=== PATIENT | male | born 1980 | race Caucasian/White ===

== ENCOUNTER 2022-04-24 09:44 | Emergency (ER) | payer OTHER, SELFPAY ==
--- NOTE | ~2022-04-24 | CT_ITS ---
EXAMINATION: CT BRAIN W/O DATE: 04/24/2022 09:53 INDICATION: CVA. TECHNIQUE: Computed tomography (CT) of the head was performed without intravenous contrast. The dose- length product was 605.33 mGy-cm. Automated exposure control and iterative reconstruction technique were employed. COMPARISON: No prior studies for comparison. FINDINGS: Normal brain parenchymal volume for age. Normal ceballos-white differentiation. No acute intrac ranial hemorrhage, infarction, mass or mass effect. No ventriculomegaly or midline shift. Midline sagittal images demonstrate a normal corpus callosum, c raniovertebral junction and sella turcica. Basilar cisterns are patent. There is mild mucosal thickening of the ethmoid sinuses. IMPRESSION: 1. No acute intracranial abnormality. As per stroke protocol, I called these results to emergency room, discussed with Johann Green at 04/24/2022 09:57 CDT. Reviewed, dictated and finalized at location B. IMPRESSION: 1. No acute intracranial abnormality. As per stroke protocol, I called these results to emergency room, discussed wit h Dr. Gladis Kyle MD at 04/24/2022 09:57 CDT.
--- NOTE | ~2022-04-24 | XR_ITS ---
EXAMINATION: XR chest 1V portable 04/24/2022 10:24 INDICATION: CVA. Right-sided weakness. PROCEDURE: AP portable chest COMPARISON: No prior studies for comparison. FINDINGS: The lungs are clear. The cardiomediastinal silhouette is within normal limits. There are no pleural effusions. There is no pneumothorax suspected. IMPRESSION: 1: NO ACUTE CARDIOPULMONARY DISEASE. Reviewed, dictated and finalized at location B.
--- NOTE | 2022-04-24 09:47 | PC.NURSE ---
Sudden RIGHT sided facial numbness/droop, last known normal 0800 this AM.
--- NOTE | 2022-04-24 09:48 | ECG_ITS ---
Measurements Intervals [place] Rate: 103 P: 52 RI: 172 QRS: -11 QRSD: 94 T: 51 QT: 328 QTc: 429 Interpretive Statements SINUS TACHYCARDIA POSSIBLE LEFT ATRIAL ENLARGEMENT [-0.1mV P-WAVE IN V1/V2] INCOMPLETE RIGHT BUNDLE BRANCH BLOCK POSSIBLE LEFT VENTRICULAR HYPERTROPHY [VOLTAGE CRITERIA PLUS LAE OR QRS WIDENING] NO PREVIOUS ECG AVAILABLE FOR COMPARISON Electronically Signed On 04-24-2022 14:29:51 CDT by Jonathan Hough M.D.
[2022-04-24 09:59] VITALS: BP 154/103; PULSE 108; RESP 24; TEMP 36.4; O2SAT 97
[2022-04-24 09:59] LABS: Glucose Point of Care 120 mg/dl (65-105)
[2022-04-24 10:05] LABS: Basophils Percent Auto 0.3 % (0.2-1.2); Eosinophils Absolute Auto 0.1 K/mm3 (0-0.3); Eosinophils Percent Auto 1.6 % (0-4.4); Hematocrit 54.1 % (42.0-52.0); Hemoglobin 18.6 g/dL (14.0-18.0); Immature Granulocyte Absolute 0.03 K/mm3 (0.00-0.031); Immature Granulocyte Percent A 0.4 % (0-0.5); Lymphocytes Absolute Auto 1.64 K/mm3 (0.9-3.2); Lymphocytes Percent Auto 21.5 % (18.3-44.2); Mean Corpuscular HGB Conc 34.4 g/dl (32-36); Mean Corpuscular Hemoglobin 32.3 pg (26-34); Mean Corpuscular Volume 93.9 fl (80-100); Mean Platelet Volume 9.6 fl (7.4-10.4); Monocytes Absolute Auto 0.8 K/mm3 (0.1-0.6); Monocytes Percent Auto 10.6 % (2.6-8.5); Neutrophils Percent Auto 65.6 % (45.5-73.1); Platelet Count Result 268 k/mm3 (150-375); Red Blood Count 5.76 M/mm3 (4.6-6.20); Red Cell Distribution Width 12.4 % (11.5-14.5); White Blood Count 7.6 K/mm3 (4.5-10.0)
[2022-04-24 10:12] LABS: INR 1.1; Prothrombin Time 13.3 Seconds (11.1-14.7)
[2022-04-24 10:13] LABS: Partial Thromboplastin Time 28.7 SECONDS (22.3-36.8)
--- NOTE | 2022-04-24 10:14 | PC.NURSE ---
DUE TO PT MOBIOUS SYNDROME THE NIH WILL BE SKEWED. PT FACE IS PARALYZED AND HAS NO FEELING ON LEFT SIDE AT BASELINE. PT UNABLE TO FULL CLOSE EYES AND MAKE OTHER FACIAL EXPERESSIONS.
[2022-04-24 10:16] VITALS: BP 154/103; PULSE 100; PULSE 106; RESP 16; O2SAT 97
[2022-04-24 10:16] LABS: Alanine Aminotransferase 55 U/L (6-50); Albumin Level 4.7 g/dL (3.5-5.1); Alkaline Phosphatase 128 U/L (38-126); Anion Gap 16 mmol/L (8-16); Aspartate Amino Transferase 89 U/L (17-59); Bilirubin,Total 0.8 mg/dL (0.2-1.3); Blood Urea Nitrogen 11 mg/dL (9-20); Calcium 9.4 mg/dL (8.4-10.2); Carbon Dioxide 29 mmol/L (22-30); Chloride 97 mmol/L (98-107); Estimated CRCL calculation 78 ml/min; Estimated Glomerular Filt Rate > 60; Glucose 122 mg/dL (65-110); Potassium 3.5 mmol/L (3.4-5.0); Sodium 142 mmol/L (137-145)
--- NOTE | 2022-04-24 10:20 | ED.NEUROSD ---
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 History of Mobius syndrome with chronic facial paralysis, slurred speech, inability to close both eyes all the way, not on any medication Related Data Allergies Allergy/AdvReac Type Severity Reaction Status Date / Time No Known Allergies Allergy Unverified 12/26/18 10:19 Review of Systems Review of Systems: All systems reviewed & are unremarkable except as noted in HPI and below PMFSH Family History Family History Sibling Family history of zxqaa-8-[id number] deficiency Social History Social History Smoking status: Current every day smoker Alcohol intake: never Exam Narrative: General appearance: Well-developed, well-nourished Skin: Normal color Head: Normocephalic, nontraumatic Eyes: Clear conjunctiva ENT: Oropharynx normal, ears normal, nose normal Neck: Supple, nontender Chest and respiratory: Airway patent, no respiratory distress, no accessory muscle use Heart: Regular rate/rhythm Abdomen: Soft, nontender, no organomegaly, quiet bowel sounds Vascular: Normal peripheral pulses, normal capillary refill. Musculoskeletal: Neurologic: Alert and oriented ?3, motor weakness of the right upper and right lower extremity, slurred speech, facial paralysis Course Consultations Consultation #1: DR HUITRON Transfer to [facility] Date: 04/24/22 Time: 10:45 Consultation #2: DR HAQ Neurologist at [facility], accepted patient transfer Date: 04/24/22 Time: 10:46 Consultation #3: Dr. NOE CARPENTER at [facility] Date: 04/24/22 Time: 10:47 Vital Signs Vital signs: Vital Signs Temperature 36.4 C 04/24/22 09:59 Pulse Rate 108 H 04/24/22 09:59 Respiratory Rate 24 H 04/24/22 09:59 Blood Pressure 154/103 H 04/24/22 09:59 Pulse Oximetry 97 04/24/22 09:59 Temperature 36.4 C 04/24/22 09:59 Pulse Rate 100 04/24/22 10:16 Respiratory Rate 16 04/24/22 10:16 Blood Pressure 154/103 H 04/24/22 10:16 Pulse Oximetry 97 04/24/22 10:16 MDM - Neuro Symptoms/Deficit Differential Diagnosis Differential diagnosis: Likely cerebrovascular accident Lab Data Result diagrams: 04/24/22 09:59 04/24/22 09:59 Labs: Lab Results 04/24/22 04/24/22 04/24/22 Range/Units 09:50 09:59 09:59 WBC 7.6 (4.5-10.0) K/mm3 RBC 5.76 (4.6-6.20) M/mm3 Hgb 18.6 H (14.0-18.0) g/dL Hct 54.1 H (42.0-52.0) % MCV 93.9 (80-100) fl MCH 32.3 (26-34) pg MCHC 34.4 (32-36) g/dl RDW 12.4 (11.5-14.5) % Plt Count 268 (150-375) k/mm3 MPV 9.6 (7.4-10.4) fl Immature Gran % (Auto) 0.4 (0-0.5) % Neut % (Auto) 65.6 (45.5-73.1) % Lymph % (Auto) 21.5 (18.3-44.2) % [place] % (Auto) 10.6 H (2.6-8.5) % Eos % (Auto) 1.6 (0-4.4) % Baso % (Auto) 0.3 (0.2-1.2) % Lymph # (Auto) 1.64 (0.9-3.2) K/mm3 [place] # (Auto) 0.8 H (0.1-0.6) K/mm3 Eos # (Auto) 0.1 (0-0.3) K/mm3 Baso # (Auto) 0.0 (0.0-0.1) K/mm3 Abs Immat Gran (auto) 0.03 (0.00-0.031)
[2022-04-24 10:26] LABS: Troponin I < 0.012 ng/mL (0.000-0.034)
--- NOTE | 2022-04-24 10:34 | PC.NURSE ---
@ [facility]3 rafael ems accepted als transfer to [facility] [place] 20min trip # [phone]
== END 2022-04-24 11:05 | disposition short-term general hospital (02) ==
PROVIDERS: Emergency Provider Emergency Medicine; PCP Emergency Medicine
DX: I63.9 Cerebral infarction, unspecified (principal); R29.707 NIHSS score 7; F17.200 Nicotine dependence, unspecified, uncomplicated; R00.0 Tachycardia, unspecified; R94.31 Abnormal electrocardiogram [ECG] [EKG]; I45.10 Unspecified right bundle-branch block
CPT/HCPCS: 36415; 37195; 70450; 71045; 80053; 82948; 84484; 85025; 85610; 85730; 93005; 99285; J2997

== ENCOUNTER 2023-03-31 07:32 | Observation (INO) | payer SELFPAY ==
[2023-03-31] VITALS (20 sets, daily range): BP systolic 120–153; BP diastolic 73–123; PULSE 72–101; RESP 5–24; TEMP 36.3–36.6; O2SAT 95–100; BMI 25.0
--- NOTE | ~2023-03-31 | CT_ITS ---
EXAMINATION: CTA BRAIN/CAROTID DATE: 03/31/2023 08:27 INDICATION: Left-sided hemiparesis TECHNIQUE: Computed tomographic angiography (CTA) of the head and neck was performed with 100 mL Omni paque-350 intravenous contrast. Multiplanar reconstructions and maximum intensity projection 3D-recon structions of the carotid arteries and of the intracranial arteries were created by the technologist on a separate workstation. Automated exposure control and iterative reconstruction technique were emp loyed.The dose-length product was 1243.20 mGy-cm. COMPARISON: None. FINDINGS: Carotid arteries: Visualized portions of the thoracic aorta and great vessels arising from the arch are normal in calib er with no atherosclerotic plaque or dissection. There is no evident plaque with 0% stenosis of the r ight and left carotid bulbs relative to normal distal artery lumen diameter (NASCET criteria). Bilate ral vertebral arteries are codominant and similar without evident atherosclerotic plaque, stenosis or dissection. Visualized portion of the lungs are clear. 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 Superior mediastinu m and cervical soft tissues are unremarkable. Moderate lower cervical spondylosis. Intracranial arteries There is no hemodynamically significant stenosis in the vertebral, basilar and internal carotid arter ies. Vertebral arteries are codominant. There are no aneurysms identified. Both A1 and P1 segments a re patent. Cerebral arterial arborization appears symmetric. No abnormally enhancing brain lesions. Mucosal thickening the bilateral maxillary and ethmoid sinuses. Mastoid air cells and middle ear cavi ties are clear. There is asphericity of the bilateral globes. Extensive dental disease. IMPRESSION: 1. 0% stenosis of the right and left carotid bulb relative to normal distal artery lumen diameter (NA SCET criteria). 2. Unremarkable CT angiogram of the intracranial arteries. Reviewed, dictated and finalized at location A. IMPRESSION: 1. 0% stenosis of the right and left carotid bulb relative to normal distal art mady lumen diameter (NASCET criteria). 2. Unremarkable CT angiogram of the intracranial arteries.
--- NOTE | ~2023-03-31 | XR_ITS ---
EXAMINATION: XR chest 1V DATE: 03/31/2023 08:30 INDICATION: Cough and weakness TECHNIQUE: frontal view of the chest was obtained. COMPARISON: Chest radiograph dated 04/24/2022 FINDINGS: The lungs remain clear with no focal airspace opacities, pulmonary edema, pleural effusion or pneumot horax. 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 The cardiomediastinal silhouette is normal. Visualized bones are unremarkable. IMPRESSION: 1. No acute cardiopulmonary disease. Reviewed, dictated and finalized at location A.
--- NOTE | ~2023-03-31 | CT_ITS ---
Non-contrast Head CT History: Weakness COMPARISON: 04/24/2022 Technique: Axial non-contrast imaging of the brain was performed. Dose reduction technique was used on this scan by utilizing automated exposure control and iterative reconstruction technique. The dose -length product (DLP) was 605.33 mGy-cm. Findings: There is no evidence of intracranial hemorrhage, mass lesion, or acute infarct. Brain par enchyma appears normal. The ventricles and subarachnoid spaces are normal in size. The calvarium ap pears normal. The visualized paranasal sinuses and mastoid air cells are clear. Impression: No significant abnormality seen. Reviewed, dictated and finalized at location . Impression: No significant abnormality seen.
--- NOTE | ~2023-03-31 | MR_ITS ---
EXAMINATION: MR brain/brain stem wo/w con DATE: 03/31/2023 12:08 INDICATION: Left arm weakness TECHNIQUE: Magnetic resonance imaging (MRI) of the brain and brainstem was performed without and with 15 mL Multihance intravenous contrast. Sequences included sagittal and axial T1-weighted SE, axial d iffusion-weighted FS SE, axial T2*-weighted GRE, axial T2-weighted FLAIR, and axial T2-weighted FSE. Postcontrast axial and coronal T1-weighted SE was obtained. Apparent diffusion coefficient (ADC) maps were created. COMPARISON: Head CT and CT angiogram dated 03/31/2023 FINDINGS: There are no areas of restricted diffusion to suggest acute infarction. No intracranial hemorrhage or abnormal intracranial mass lesion. There are scattered areas of nonspecific increased T2-weighted si gnal intensity in the cerebral white matter, predominantly involving the deep and periventricular whi te matter. There are no intraparenchymal signal abnormalities seen on the other pulse sequences. The ventricles are symmetric and normal in size. There are no abnormal extra-axial fluid collections. No abnormally enhancing brain lesions identified. Flow voids are seen in the cerebral arteries on the T2 -weighted sequences consistent with their expected patency. Mucosal thickening the bilateral ethmoid and maxillary sinuses. The globes are again noted to be aspherical. IMPRESSION: 1. Normal brain. No acute intracranial process. Reviewed, dictated and finalized at location A.
--- NOTE | 2023-03-31 07:57 | ECG_ITS ---
Measurements Intervals [place] Rate: 73 P: 37 CA: 184 QRS: -16 QRSD: 94 T: 24 QT: 367 QTc: 407 Interpretive Statements SINUS RHYTHM POSSIBLE LEFT ATRIAL ENLARGEMENT [-0.1mV P WAVE IN V1/V2] INCOMPLETE RIGHT BUNDLE BRANCH BLOCK POSSIBLE LEFT VENTRICULAR HYPERTROPHY [VOLTAGE CRITERIA PLUS LAE OR QRS WIDENING] COMPARED TO ECG 04/24/2022 10:02:36 SINUS RHYTHM NOW PRESENT Electronically Signed On 03-31-2023 12:43:18 CDT by Jonathan Hough M.D.
--- NOTE | 2023-03-31 07:59 | ED.WEAKNESS ---
HPI - Weakness General Chief complaint: Weakness Stated complaint: dizzy/lightheaded Time Seen by Provider: 03/31/23 07:34 History of Present Illness HPI Narrative: Patient with history of Mobius disorder presents here with generalized weakness, he states that he had been feeling quite tired yesterday, and today was still feeling a little bit off, so came in, he says that as he was pulling and he started feeling like his left arm was weak and numb compared to his right. He states something similar happened about a year ago and he had been seen here and [facility] where they did not find anything. He states that over the last few weeks he has been noticing some bright red blood in his stool when he wipes Related Data Home Medications Medication Instructions Recorded Confirmed No Home Medications 03/31/23 03/31/23 Allergies Allergy/AdvReac Type Severity Reaction Status Date / Time No Known Allergies Allergy Unverified 12/26/18 10:19 Review of Systems Review of Systems: CONST: No fever. HEENT: No sore throat C/V: No chest pain RESP: No cough GI: No nausea or vomiting; occasional bright red blood in stool : No dysuria. M/S: No joint pain. SKIN: No rash. NEURO: Numbness/heaviness of left arm PSYCH: [No depression] [facility] Family History Family History Sibling Family history of bhfaz-6-ezxalnwokih deficiency Social History Social History Smoking status: Current every day smoker Tobacco type: cigarettes Alcohol intake: current Drinks per week: 21 Substance use: never Lack of Transportation: No Lack of Food: Never True Current Housing: I Have Housing Concerned About Future Housing: No Difficulty Paying Gas/Electric Bills: No Difficulty Paying for Meds: No Currently Unemployed: No Education: Decline to Answer Difficulty w/ Childcare or Family Care: No Spiritual care concerns: No Exam Narrative: EXAMINATION OF ORGAN SYSTEMS/BODY AREAS: Constitutional: Vital signs per nursing GENERAL:[No acute distress, non-toxic appearing.] HEAD: Normal with no signs of head trauma. EYES: Normal conjunctiva; no EOM ENT: Hearing grossly intact LUNGS: Nonlabored breathing. HEART: [Regular rate and rhythm] ABD: [Soft], [nontender to palpation] EXT: No deformities SKIN: [No rashes or lesions.] NEURO: [Alert and oriented x 3. No facial or eye movement; L arm slightly tremulous with movement; FTN intact bilaterally, L arm and L leg slightly weaker compared to R arm/leg] PSYCH: Normal affect Course Vital Signs Vital signs: Vital Signs Temperature 97.4 F L 03/31/23 07:30 Pulse Rate 82 03/31/23 07:30 Respiratory Rate 18 03/31/23 07:30 Blood Pressure 141/98 H 03/31/23 07:30 Pulse Oximetry 99 03/31/23 07:30 Oxygen Delivery Room Air 03/31/23 07:30 Temperature 97.4 F L 03/31/23 07:30 Pulse Rate 80 03/31/23 11:45 Respiratory Rate 24 H 03/31/23 10:53 Blood Pressure 141/88 H 03/31/23 10:53 Pulse Oximetry 98 03/31/23 10:53 Oxygen Delivery Room Air 03/31/23 07:30 MDM - Weakness MDM Narrative Medical decision making narrative: Patient presenting with generalized weakness, possible left-sided weakness that started when he came to the ER, stroke protocol immediately initiated, NIH stroke scale was about a 4 but I did do feel a lot of this is probably baseline for the patient given his genetic disorder. CT is normal, labs are normal other than alcohol though not very high. I did reevaluate the patient and he feels like his symptoms have improved, he is not a tPA candidate given improvement of his symptoms, he has no drift, I have discussed this with the neurologist who recommends admission for MRI. Case discussed with hospitalist Lab Data 03/31/23 08:38 03/31/23 08:38 Labs: Lab Results 03/31/23 10
[2023-03-31 08:20] LABS: Estimated CRCL calculation 94 ml/min; Estimated Glomerular Filt Rate > 60
[2023-03-31 08:44] LABS: Basophils Percent Auto 0.4 % (0.2-1.2); Eosinophils Absolute Auto 0.1 K/mm3 (0-0.3); Eosinophils Percent Auto 2.3 % (0-4.4); Hematocrit 44.7 % (42.0-52.0); Hemoglobin 15.1 g/dL (14.0-18.0); Immature Granulocyte Absolute 0.02 K/mm3 (0.00-0.031); Immature Granulocyte Percent A 0.4 % (0-0.5); Lymphocytes Absolute Auto 1.56 K/mm3 (0.9-3.2); Lymphocytes Percent Auto 30.1 % (18.3-44.2); Mean Corpuscular HGB Conc 33.8 g/dl (32-36); Mean Corpuscular Hemoglobin 30.9 pg (26-34); Mean Corpuscular Volume 91.6 fl (80-100); Mean Platelet Volume 9.4 fl (7.4-10.4); Monocytes Absolute Auto 0.6 K/mm3 (0.1-0.6); Monocytes Percent Auto 10.8 % (2.6-8.5); Neutrophils Absolute Auto 2.9 K/mm3 (1.3-6.7); Platelet Count Result 254 k/mm3 (150-375); Red Blood Count 4.88 M/mm3 (4.6-6.20); Red Cell Distribution Width 13.9 % (11.5-14.5); White Blood Count 5.2 K/mm3 (4.5-10.0)
[2023-03-31 08:54] LABS: Alanine Aminotransferase 31 U/L (6-50); Albumin Level 4.3 g/dL (3.5-5.1); Alkaline Phosphatase 66 U/L (38-126); Anion Gap 8 mmol/L (8-16); Aspartate Amino Transferase 47 U/L (17-59); Bilirubin,Total 0.9 mg/dL (0.2-1.3); Blood Urea Nitrogen 8 mg/dL (9-20); Calcium 8.9 mg/dL (8.4-10.2); Carbon Dioxide 30 mmol/L (22-30); Chloride 97 mmol/L (98-107); Estimated CRCL calculation 94 ml/min; Estimated Glomerular Filt Rate > 60; Ethanol 19 mg/dL (<10); Glucose 91 mg/dL (65-110); Potassium 4.1 mmol/L (3.4-5.0); Sodium 135 mmol/L (137-145)
[2023-03-31 09:02] LABS: Appearance Urine Clear (Clear); Bilirubin Urine Negative (Negative); Blood Urine Negative (Negative); Color Urine Yellow (Yellow); Glucose Urine UA Negative (Negative); Ketones Urine Negative (Negative); Leukocyte Esterase Ur Negative LEU/UL (Negative); Nitrate Urine Negative (Negative); Protein Urine Negative (Negative); Urobilinogen Urine 0.2 mg/dL (<2.0); pH Urine 8.5 (5.0-9.0)
[2023-03-31 09:19] LABS: Amphetamine Screen Urine Negative (Negative); Barbiturate Screen Urine Negative (Negative); Benzodiazepines Screen Urine Negative (Negative); Cannabinoid Screen Urine Negative (Negative); Cocaine Screen Urine Negative (Negative); Methadone Screen Urine Negative (Negative); Opiate Screen Urine Negative (Negative); Phencyclidine Screen Urine Negative (Negative)
[2023-03-31 09:20] LABS: Specific Grav Ur 1.046 (1.001-1.035)
[2023-03-31 09:21] LABS: Add Urine Microscopic? NO
[2023-03-31] MEDS: LACTATED RINGERS 1,000 ML 999 ML IV CONT (09:51)
[2023-03-31] MEDS: ASPIRIN 81 MG CHEWABLE TABLET 324 MG PO (09:52)
--- NOTE | 2023-03-31 11:23 | ADMGEN ---
This patient, Chris Jensen, was admitted to [facility] Room 323-02. Patient/family oriented to hospital policies and general routines including ID bracelet, bed and alarms, visiting hours, pain management, procedures, bathroom and other care routines, personal items, smoking policy, room service/diet, and visiting hours. Information on how to activate the Rapid Response Team has been discussed. Patient/Family are encouraged to report perceived risks to care and to ask questions if they do not understand what they are told or what they should do.
--- NOTE | 2023-03-31 11:55 | PC.NURSE ---
patient to MRI per w/c
--- NOTE | 2023-03-31 12:43 | WPDNEURCNPN ---
Assessment and Plan Assessment and plan (1) TIA (transient ischemic attack): Code(s): G45.9 - Transient cerebral ischemic attack, unspecified Status: Acute Plan 1 Moebius syndrome 2 TIA 3 rule out cervical pathology plan MRI of the brain and further recommendations accordingly Consult date: 03/31/23 HPI: Chris Jensen is a 42 year old male Admitted to the hospital through the emergency room with the complaints of right-sided numbness as per the information available in the emergency room he noted tingling and numbness of the right hand with subsequent spread all over the right upper extremity along with mild weakness and same sensation in the right lower extremity as well but 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 He is not allergic to any medication does have a history of currently every day smoking but no history of alcohol intake, initial exam in the emergency room was with weakness of the right upper and right lower extremity along with the slurred speech and facial paralysis. Vital signs were normal except the blood pressure 154/103 CBC was normal so as the CMP and complete lab was normal except the blood sugar 122 chest x-ray reveals no acute problem EKG without atrial fibrillation but there was sinus tachycardia but question about the left anterior myocardial ischemia undetermined age his stroke scale was 1 since admission he has CTA of the brain which revealed no evidence of aneurysm and no evidence of any vascular involvement PMFSH Family History Family History Sibling Family history of davhq-2-wttfjxpfikk deficiency Social History Social History Smoking status: Current every day smoker Tobacco type: cigarettes Alcohol intake: current Drinks per week: 21 Substance use: never Lack of Transportation: No Lack of Food: Never True Current Housing: I Have Housing Concerned About Future Housing: No Difficulty Paying Gas/Electric Bills: No Difficulty Paying for Meds: No Currently Unemployed: No Education: Decline to Answer Difficulty w/ Childcare or Family Care: No Spiritual care concerns: No Meds Home Medications and Allergies Home Medications Medication Instructions Recorded Confirmed Type No Home Medications 03/31/23 03/31/23 History Allergies Allergy/AdvReac Type Severity Reaction Status Date / Time No Known Allergies Allergy Unverified 12/26/18 10:19 Vital Signs Vital Signs - 24 hr 03/31/23 07:30 03/31/23 10:53 03/31/23 07:38 Temperature 36.3 C L Pulse Rate 82 101 H 83 Respiratory Rate 18 24 H 11 L Blood Pressure 141/98 H 141/88 H Pulse Oximetry 99 98 99 Oxygen Delivery Room Air 03/31/23 07:39 03/31/23 07:49 03/31/23 08:00 Temperature Pulse Rate 78 84 77 Respiratory Rate 18 15 15 Blood Pressure 141/98 H Pulse Oximetry 98 98 Oxygen Delivery 03/31/23 08:01 03/31/23 08:33 03/31/23 08:34 Temperature Pulse Rate 77 72 72 Respiratory Rate 17 10 L 14 Blood Pressure 139/97 H 153/123 H Pulse Oximetry 98 98 Oxygen Delivery 03/31/23 08:45 03/31/23 08:46 03/31/23 09:35 Temperature Pulse Rate 72 76 89 Respiratory Rate 5 L 18 15 Blood Pressure 135/91 H Pulse Oximetry 98 98 97 Oxygen Delivery 03/31/23 09:45 03/31/23 09:46 03/31/23 10:01 Temperature Pulse Rate 72 77 85 Respiratory Rate 19 19 11 L Blood Pressure 127/84 127/87 Pulse Oximetry 97 95 97 Oxygen Delivery 03/31/23 10:02 03/31/23 10:15 03/31/23 10:16 Temperature Pulse Rate 85 78 87 Respiratory Rate 13 8 L 8 L Blood Pressure 126/74 Pulse Oximetry 99 99 100 Oxygen Delivery 03/31/23
[2023-03-31] MEDS: NICOTINE (*PBKC) 14 MG PATCH 1 PATCH TRANSDERM (13:19)
--- NOTE | 2023-03-31 15:56 | PC.NURSE ---
This nurse spoke to pt about pros and cons of leaving AMA. This nurse talked to laundry housekeeper, charge nurse and hospitalist. Had pt sign ama paperwork and this nurse took out pt iv.
--- NOTE | 2023-03-31 16:34 | PM.IMHP ---
H&P: HPI History of Present Illness Date/Time: 03/31/23 16:34 Chief Complaint: Extremity Numbness, Fatigue Narrative: 42-year-old male presents here with numbness and tingling to his left hand, fatigue, and intermittent blood per rectum with past medical history of MOBIUS. Patient reports fatigue over the last week. Initially believed he was tired due to volume of working v. illness. However yesterday he began to feel more sluggish and described it as no energy . This morning shortly after patient woke up around 545a he began feeling dizzy and lightheaded. After arrival to work he began having left-sided numbness and tingling to his hand. Reports similar episode, but right upper extremity and was evaluated at [facility]. Workup did not reveal any abnormalities or etiology for symptoms. Patient also reports that he gets bright red blood per rectum once a month. He has a past medical history of IBS (constipation and diarrhea) with subsequent hemorrhoids. Digital rectal exam in the ED did not reveal blood occult negative. 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 Review of Systems Review of Systems: Patient denies headache, fever, nausea, vomiting, chest pain, palpitations. No recent trauma, back or neck pain, heavy lifting. All systems reviewed & are unremarkable except as noted in HPI and below PMFSH Past Medical History Medical History (Updated 03/31/23 @ 20:10 by Myesha Del Valle APRN) Irritable bowel syndrome with both constipation and diarrhea Mobius syndrome Surgical History Surgical History (Updated 03/31/23 @ 20:04 by Myesha Del Valle APRN) History of knee surgery Left Family History Family History Sibling Family history of ryvcm-4-bgqjskdybtr deficiency Social History Social History (Updated 03/31/23 @ 20:05 by Myesha Del Valle APRN) Social History: Currently lives with (currently going through divorce). Surrogate decision maker: medical providers, none designated. Full Code. Smoking status: Current every day smoker Tobacco type: cigarettes Alcohol intake: current Drinks per week: 21 Substance use: never Lack of Transportation: No Lack of Food: Never True Current Housing: I Have Housing Concerned About Future Housing: No Difficulty Paying Gas/Electric Bills: No Difficulty Paying for Meds: No Currently Unemployed: No Education: Decline to Answer Difficulty w/ Childcare or Family Care: No Spiritual care concerns: No Meds Home Medications and Allergies Home Medications Medication Instructions Recorded Confirmed Type No Home Medications 03/31/23 03/31/23 History Allergies Allergy/AdvReac Type Severity Reaction Status Date / Time No Known Allergies Allergy Unverified 12/26/18 10:19 Vital Signs Vital Signs - 24 hr 03/31/23 07:30 03/31/23 10:53 03/31/23 07:38 Temperature 97.4 F L Pulse Rate 82 101 H 83 Respiratory Rate 18 24 H 11 L Blood Pressure 141/98 H 141/88 H Pulse Oximetry 99 98 99 Oxygen Delivery Room Air 03/31/23 07:39 03/31/23 07:49 03/31/23 08:00 Temperature Pulse Rate 78 84 77 Respiratory Rate 18 15 15 Blood Pressure 141/98 H Pulse Oximetry 98 98 Oxygen Delivery 03/31/23 08:01 03/31/23 08:33 03/31/23 08:34 Temperature Pulse Rate 77 72 72 Respiratory Rate 17 10 L 14 Blood Pressure 139/97 H 153/123 H Pulse Oximetry 98 98 Oxygen Delivery 03/31/23 08:45 03/31/23 08:46 03/31/23 09:35 Temperature Pulse Rate 72 76 89 Respiratory Rate 5 L 18 15 Blood Pressure 135/91 H Pulse Oximetry 98 98 97 Oxygen Delivery 03/31/23 09:45 03/31/23 09:46 03/31/23 10:01 Temperature Pulse Rate 72 77 85 Respiratory Rate 19 19 11 L Blood Pressure 127/84 127/87 Pulse Oximetry 97 95 97 Oxygen Delivery
== END 2023-03-31 16:10 | disposition left against medical advice (07) ==
LOC: ANHED 08:46 → ANH3MEDSUR 10:13
PROVIDERS: Admitting Provider Internal Medicine; Emergency Provider Emergency Medicine; Visit Provider Internal Medicine
DX: G45.9 Transient cerebral ischemic attack, unspecified (principal); Q87.0 Congenital malformation syndromes predominantly affecting facial appearance; Z53.29 Procedure and treatment not carried out because of patient's decision for other reasons; R53.83 Other fatigue; K62.5 Hemorrhage of anus and rectum; K58.2 Mixed irritable bowel syndrome; I45.10 Unspecified right bundle-branch block; R05.9 Cough, unspecified; F17.210 Nicotine dependence, cigarettes, uncomplicated; F10.90 Alcohol use, unspecified, uncomplicated; Y90.0 Blood alcohol level of less than 20 mg/100 ml
CPT/HCPCS: 70450; 70496; 70498; 70553; 71045; 80053; 80307; 81003; 85025; 93005; 96360; 99285; A9270; A9577; G0378; G0379; J7120; Q9967